=== PATIENT | female | born 1985 | race Caucasian/White ===

== ENCOUNTER 2018-12-21 09:27 | Emergency (ER) | payer MEDICAID, OTHER ==
[~2018-12-21] VITALS: Ht 154.9 cm; Wt 66.6 kg
[2018-12-21 09:28] VITALS: BP 143/110
[2018-12-21] MEDS ORDERED: VALA100027 PO (11:19)
[2018-12-21] MEDS ORDERED: ACET-3068 PO (11:19)
== END 2018-12-21 11:40 | disposition home or self-care (01) ==
LOC: ER 09:27
DX: B02.9 Zoster without complications (principal); F12.90 Cannabis use, unspecified, uncomplicated; F17.210 Nicotine dependence, cigarettes, uncomplicated; Z79.899 Other long term (current) drug therapy
CPT/HCPCS: 99283

== ENCOUNTER 2019-03-20 07:47 | Emergency (ER) | payer MEDICAID, OTHER ==
[~2019-03-20] VITALS: Ht 154.9 cm; Wt 61.4 kg
[~2019-03-20 07:47] MED LIST: VALA100027 PO
[2019-03-20] MEDS ORDERED: naloxone 0.4 mg/ml inj IV ONE (07:50)
[2019-03-20] MEDS ORDERED: naloxone 2mg/2ml inj IV STA (07:53)
[2019-03-20 07:58] VITALS: BP 127/69
[2019-03-20] MEDS ORDERED: normal saline 1000ML IV soln IVB ONE (08:10)
[2019-03-20] MEDS ORDERED: naloxone 0.4 mg/ml inj ONE (14:00)
== END 2019-03-20 08:50 | disposition left against medical advice (07) ==
LOC: ER 07:48
DX: T40.691A Poisoning by other narcotics, accidental (unintentional), initial encounter (principal); R41.82 Altered mental status, unspecified; F17.210 Nicotine dependence, cigarettes, uncomplicated; F12.90 Cannabis use, unspecified, uncomplicated; Y92.89 Other specified places as the place of occurrence of the external cause
CPT/HCPCS: 96374; 99283; J2310

== ENCOUNTER 2025-08-28 23:21 | Emergency (ER) | payer MEDICAID ==
[~2025-08-28] VITALS: Ht 154.9 cm; Wt 68.2 kg
[~2025-08-28 23:21] MED LIST changes: -VALA100027 PO; +VALA100031 PO
--- NOTE | 2025-08-29 01:22 | RADIOLOGY REPORT ---
CLINICAL INDICATION: ANKLE PAIN RIGHT TECHNIQUE: DI ANKLE, COMPLETE(3VW MIN) Comparison: None FINDINGS/IMPRESSION: : Age-indeterminate acute to subacute appearing minimally displaced fractures of the inferior margins of the medial malleolus and distal fibula. Moderate bimalleolar soft tissue swelling. [id number] tibiotalar effusion.
--- NOTE | 2025-08-29 02:05 | Physician Documentation ---
History of Present Illness ~ Chief Complaint: Ankle pain Stated Complaint: RIGHT ANKLE PAIN Time Seen by MD: 02:04 Primary Medical Doctor: None HPI Patient presents to the emergency room with right ankle pain since yesterday. She states that yesterday she rolled her ankle. No other injuries reported. Denies history of ankle injuries. Tetanus witin 5 years: No (PT. REPORTS UNKNOWN DATE) Medication Reconciliation Allergies: Coded Allergies: No Known Allergies (Unverified , 12/21/18) Scheduled Valacyclovir HCl (Valacyclovir), 1 TAB PO Q8H Past Medical History Past Medical History: No Pertinent History Past Surgical History: no surgical history Alcohol Use: Heavy Drug Use: marijuana Review of Systems ROS All review of systems negative except as per HPI Physical Exam Vital Signs: Temperature: 98.0, Heart Rate: 98, Respiratory Rate: 16, BP: 175/85, Pulse Oximetry: 100, Weight: 68.180 Oxygen Flow Rate: 0 Physical Exam General: Patient is awake, alert, oriented x4 in no acute distress Head: Normocephalic and atraumatic. Eyes: Conjunctival normal. EOMI. PERRL. ENT: Mucous membranes moist. Neck: Supple, trachea is midline. Chest: Clear to auscultation bilaterally without rales, rhonchi, or wheezes. There is no accessory muscle use or retractions. Cardiac: RRR without murmurs, gallops, or rubs. Extremities: Normal strength. Normal range of motion. Swelling and tenderness to palpation to right lateral malleolus. Neurovascularly intact Progress Results/Orders Results/Orders Orders - FREDIS VOGEL MD Ankle, Complete(3vw Min) (08/29/25 01:02) Completed Orders - FREDIS VOGEL MD Ankle, Complete(3vw Min) (08/29/25 01:02) Vital Signs 08/29/25 00:36 Temp 98.0 Pulse 98 Resp 16 B/P (MAP) 175/85 Pulse Ox 100 O2 Flow Rate 0 Medical Decision Making Findings Patient presents to the emergency room for evaluation of ankle pain that has per HPI. Differentials include but are not limited to fractures, dislocation, soft tissue injury therefore x-ray performed which shows subacute fractures. Patient's main pain is over the lateral malleolus and that has possibly a small chip seen on x-ray. Patient does not have any pain on medial malleolus where possible fracture that has seen on x-ray and he had not feel this represents an acute finding. Patient placed in boot. Rice therapy discussed. Departure Disposition: HOME / SELF CARE / HOMELESS Impression: Primary Impression: Sprain of ankle Condition: Stable Discharge Instructions: Ankle Sprain Additional Instructions: Ibuprofen and Tylenol may be taken together for pain. That has symptoms fail to improve with the next 1-2 weeks he will need to follow up with your doctor for repeat x-ray to look for cryptic fracture or possible referral for advanced imaging such as MRI. Referrals: NO PRIMARY CARE PROVIDER (PCP) Signature Scribe Signature: No scribe Attestation: The note accurately reflects work and decisions made by me.Fredis Vogel MD 08/29/25 02:11 FREDIS VOGEL MD Aug 29, 2025 02:05
[2025-08-29] MEDS: ibuprofen tablet 400 MG TABLET PO ONE (02:17)
[2025-08-29 02:36] VITALS: BP 170/80; PULSE 72; RESP 18; TEMP 98.6; O2SAT 99
== END 2025-08-29 02:37 | disposition home or self-care (01) ==
LOC: ER 23:22
DX: S93.491A Sprain of other ligament of right ankle, initial encounter (principal); F12.90 Cannabis use, unspecified, uncomplicated; F10.90 Alcohol use, unspecified, uncomplicated; Y90.9 Presence of alcohol in blood, level not specified; X50.1XXA Overexertion from prolonged static or awkward postures, initial encounter; Y93.89 Activity, other specified; Y92.89 Other specified places as the place of occurrence of the external cause; Y99.8 Other external cause status
CPT/HCPCS: 73610; 99283; J7030; L4360